=== PATIENT | male | born 1960 | race Caucasian/White ===

== ENCOUNTER 2017-08-12 02:15 | Emergency (ER) | payer BC, SELFPAY ==
--- NOTE | 2017-08-12 02:24 | ED_ITS ---
HPI - Abdominal Pain General Chief Complaint: Back Pain/Injury Stated Complaint: BACK PAIN Time Seen by Provider: 08/12/17 02:16 Source: patient and family Mode of arrival: ambulatory Limitations: no limitations History of Present Illness HPI narrative: Otherwise healthy 56-year-old male here for evaluation of bilateral mid back pain. Patient states that he has felt like it has been sore for the past couple days. Has been coughing for several weeks now. Does have sinus congestion. No trauma. No urinary symptoms. No bowel symptoms. No saddle anesthesia. Patient states that he did see a natural [facility] a provider who gave him a ?tea? to drink. He states that since then he has felt like the pain has gotten worse. Patient came in to make sure his kidney function was okay Related Data Previous Rx's Medication Instructions Recorded albuterol sulfate [Ventolin HFA] 2 puff INH Q4HP PRN #1 inh 02/25/16 codeine-guaifenesin 5 ml PO QHS #60 ml 02/25/16 benzonatate [Tessalon Perles] 100 mg PO TID PRN #20 cap 08/12/17 cyclobenzaprine 10 mg PO TID PRN #20 tab 08/12/17 Allergies Allergy/AdvReac Type Severity Reaction Status Date / Time NSAIDS (Non-Steroidal Allergy Unknown Verified 08/12/17 02:39 Anti-Inflamma [NSAIDS (NON-STEROIDAL ANTI-INFLAMMA] shellfish derived Allergy Unknown Unverified 06/13/17 12:40 [SHELLFISH DERIVED] Review of Systems Constitutional Denies chills, Denies fever(s), Denies lethargy and Denies weakness ENT Ears, Nose, Mouth, and Throat: Denies neck pain Cardiovascular Denies dyspnea Respiratory Reports cough, Denies pain on inspiration, Reports pain with cough, Denies dyspnea and Denies wheezing Gastrointestinal Gastrointestinal: Denies abdominal pain, Denies constipation, Denies diarrhea, Denies nausea and Denies vomiting Musculoskeletal Denies abnormal gait, Reports back pain, Denies neck pain and Denies tingling Integumentary/Breasts Denies rash Neurologic Denies abnormal gait, Denies focal weakness, Denies sensory deficit, Denies tingling and Denies weakness Hematologic/Lymphatic Denies easy bruising Allergic/Immunologic Denies wheezing FOR[facility]LY [facility] Social History (Reviewed 08/12/17 @ 04:35 by TERI Dale Smoking Status: Never smoker Exam Initial Vital Signs Initial Vital Signs: Vital Signs Temperature 98.0 F 08/12/17 02:35 Pulse Rate 75 08/12/17 02:35 Respiratory Rate 18 08/12/17 02:35 Blood Pressure 142/96 H 08/12/17 02:35 Pulse Oximetry 99 08/12/17 02:35 Resp Effort & Inspection: normal respiratory effort, no audible wheezes, no cough and not labored GI Inspection: normal to inspection and non-distended Palpation: soft, No firm, No guarding and No tender Back/Spine/Pelvis Back: normal to inspection, back tenderness and CVA tenderness Thoracic/Lumbar Spine: thoracic and lumbar spine normal to inspection Skin General: no rashes or lesions noted, No jaundice and No petechiae Neuro General: alert, awake and oriented x3 Course Orders Ordered: ED Orders 08/12/17 03:15 Basic Metabolic Panel Stat Vital Signs - 8 hr 08/12/17 02:35 08/12/17 04:10 Temperature 98.0 F 97.4 F L Pulse Rate 75 60 Respiratory Rate 18 16 Blood Pressure 142/96 H 138/91 H Pulse Oximetry 99 98 MDM - Abdominal Pain Lab Data Result diagrams: 08/12/17 03:15 Lab Results 08/12/17 Range/Units 03:15 Sodium 142 (137-145) mmol/L Potassium 4.1 (3.4-5.1) mmol/L Chloride 103 (98-107) mmol/L Carbon Dioxide 31 (22-32) mmol/L BUN 15 (9-20) mg/dL Creatinine 0.90 (0.66-1.25) mg/dL Estimated GFR > 60.0 (>60) mL/min BUN/Creatinine Ratio 16.7 (6-22) Glucose 100 (70-100) mg/dL Calcium 9.3 (8.4-10.2) mg/dL MDM Narrative Medical decision making narrative: Creatinine unremarkable. Urine unremarkable. Patient's symptoms consistent with musculoskeletal back pain. No red flag symptoms concerning for fracture or cauda equina. Will hold on any radiologic studies for now. We discussed the use of Tylenol. Patient states he is allergic to nonsteroidal anti-inflammatories. Will send home with test lawn secondary to his coughing which is probably adding to his back pain. Will also send home with Flexeril. Patient was instructed that the Flexeril does not work over the next couple doses that he should stop that medicine. He was given return precautions. Family was at bedside for the discussion. He expressed understanding and agreement with plan Discharge Plan Departure Patient Disposition: Home, Self-Care Clinical Impression: Thoracic back pain Discharge Date/Time: 08/12/17 04:11 Interventions: ED Discharge Assessment Last Done: 08/12/17 04:10 Instructions: Back Pain (Alternative Therapy), Activity May Be Better then Rest for Low Back Pain Recovery Activity Restrictions/Additional Instructions: Take the medications as directed. Also recommend that you take Tylenol as directed for the next couple days. Also encourage you to use heat/hi/massage as needed. Return to the emergency department for any new or worsening symptoms Prescriptions: New cyclobenzaprine 10 mg tablet 10 mg PO TID PRN (Reason: muscle spasm) Qty: 20 RF: 0 benzonatate [Tessalon Perles] 100 mg capsule 100 mg PO TID PRN (Reason: cough) Qty: 20 RF: 0 No Action codeine-guaifenesin 100 MG/10 MG liquid 5 ml PO QHS Qty: 60 RF: 0 albuterol sulfate [Ventolin HFA] 90 MCG/PUFF HFA aerosol inhaler 2 puff INH Q4HP PRNQty: 1 RF: 0
[2017-08-12 02:35] VITALS: BP 142/96; PULSE 75; RESP 18; TEMP 36.7; O2SAT 99; BMI 24.3
[2017-08-12 03:34] LABS: BUN Creatinine Ratio 16.7 (6-22); Blood Urea Nitrogen 15 mg/dL (9-20); Calcium 9.3 mg/dL (8.4-10.2); Carbon Dioxide 31 mmol/L (22-32); Chloride 103 mmol/L (98-107); Estimated Glomerular Filt Rate > 60.0 mL/min (>60); Glucose 100 mg/dL (70-100); HEMOLYSIS < 15 (0-50); Potassium 4.1 mmol/L (3.4-5.1); Sodium 142 mmol/L (137-145)
[2017-08-12 04:10] VITALS: BP 138/91; PULSE 60; RESP 16; TEMP 36.3; O2SAT 98
== END 2017-08-12 04:11 | disposition home or self-care (01) ==
PROVIDERS: Emergency Provider Emergency Medicine; Family Provider Nurse Practitioner Family; PCP Nurse Practitioner Family
DX: M54.6 Pain in thoracic spine (principal)
CPT/HCPCS: 36415; 80048; 81003; 99282

== ENCOUNTER → 2019-01-01 12:35 | Outpatient (CLI) | payer OTHER, SELFPAY ==
--- NOTE | 2019-01-01 | DI.MRI.S_ITS ---
PROCEDURE: MR LUMBAR SPINE WO CON INDICATIONS: midline back pain with sciatica TECHNIQUE: Noncontrast sagittal T1 spin echo and T2 fast echo, sagittal STIR, axial T1 and T2 fast spin echo through the lumbar spine. In cases with scoliosis, additional coronal T2 fast spin echo may be performed. COMPARISON: [facility], CR, XR LUMBAR SPINE 2 OR 3 VIEWS, 05/02/2017, 11:01. FINDINGS: Image quality: Excellent. Alignment and Curvature: 5 lumbar type vertebral bodies are present by plain film. There is normal bony alignment. Bone Marrow: Marrow is of normal overall signal. No acute vertebral body compression fractures. There is mild degenerative marrow edema adjacent to the L4-L5 facet joints bilaterally, left greater than right. Spinal Cord: Conus medullaris terminates at the lower L1 level. Visualized cord demonstrates normal signal and size. Paraspinous Soft Tissues: No paravertebral masses. L1-L2: Normal appearance. L2-L3: Mild disc desiccation. Mild diffuse disc bulge. Mild facet and ligamentum flavum hypertrophy. Mild canal stenosis. No foraminal stenosis. L3-L4: Mild disc desiccation and diffuse disc bulge. Mild facet hypertrophy. No significant canal stenosis. Mild bilateral foraminal stenosis. L4-L5: Mild disc desiccation and diffuse disc bulge. Mild facet and ligamentum hypertrophy. Mild epidural lipomatosis. Moderate canal stenosis. Moderate subarticular foraminal stenosis bilaterally. L5-S1: Mild bilateral facet hypertrophy. No significant canal stenosis. Moderate subarticular foraminal stenosis bilaterally. IMPRESSION: 1. Multilevel degenerative disc and facet disease, as well as ligamentum flavum hypertrophy and epidural lipomatosis. 2. Multilevel canal stenoses, worst at L4-L5, where there is moderate canal stenosis. 3. Multilevel foraminal stenoses, worst at L4-L5 and L5-S1 bilaterally, where there are moderate foraminal stenoses present. Dictated by: Rafiq Guzman M.D. on 01/01/2019 at 14:03 Approved by: Rafiq Guzman M.D. on 01/01/2019 at 14:06
== END ==
PROVIDERS: Family Provider Nurse Practitioner Family; PCP Nurse Practitioner Family; Visit Provider Nurse Practitioner Family
DX: M51.16 Intervertebral disc disorders with radiculopathy, lumbar region (principal); M48.061 Spinal stenosis, lumbar region without neurogenic claudication; M48.07 Spinal stenosis, lumbosacral region; E88.2 Lipomatosis, not elsewhere classified
CPT/HCPCS: 72148

== ENCOUNTER → 2023-02-08 15:21 | Outpatient (CLI) | payer OTHER, SELFPAY ==
--- NOTE | 2023-02-08 | DI.MRI.S_ITS ---
PROCEDURE: MR LUMBAR SPINE WO CON INDICATIONS: LUMBAR PAIN TECHNIQUE: Noncontrast sagittal T1 spin echo and T2 fast echo, sagittal STIR, and T2 fast spin echo through the lumbar spine. In cases with scoliosis, additional coronal T2 fast spin echo may be performed. COMPARISON: [facility], MR, MR LUMBAR SPINE WO CON, 01/01/2019, 12:47. FINDINGS: Image quality: Excellent. Alignment and Curvature: There is normal bony alignment. Bone Marrow: Marrow is of normal overall signal. No acute vertebral body compression fractures. Spinal Cord: Conus medullaris terminates at the L1 level. Visualized cord demonstrates normal signal and size. Paraspinous Soft Tissues: No paravertebral masses. T12-L1: No significant disc bulge. The foramina and central canal are patent. L1-L2: No significant disc bulge. The foramina and central canal are patent. L2-L3: Mild disc desiccation. No significant disc bulge. The foramina and central canal are patent. L3-L4: Mild disc desiccation. No significant disc bulge. The foramina and central canal are patent. L4-L5: Mild disc desiccation. Mild facet and ligamentum flavum hypertrophy. Moderate subarticular foraminal stenosis bilaterally. Moderate central canal stenosis. L5-S1: Diffuse disc bulge. Mild bilateral facet hypertrophy. Epidural lipomatosis. Moderate bilateral subarticular foraminal stenosis. The central canal is patent. IMPRESSION: 1. Multilevel lumbar spondylosis causing foraminal and central canal stenosis as detailed above. Moderate central canal stenosis at L4-5. 2. No focal protrusion or extrusion. 3. The visualized cord has normal signal. 4. No significant interval change compared to 01/01/2019. Dictated by: Gt Crowe M.D. on 02/09/2023 at 8:03 Approved by: Gt Crowe M.D. on 02/09/2023 at 8:10
== END ==
PROVIDERS: Family Provider Nurse Practitioner Family; PCP Nurse Practitioner Family; Referring Provider Family Medicine; Visit Provider Family Medicine
DX: M47.816 Spondylosis without myelopathy or radiculopathy, lumbar region (principal); M47.817 Spondylosis without myelopathy or radiculopathy, lumbosacral region; M48.061 Spinal stenosis, lumbar region without neurogenic claudication; M48.07 Spinal stenosis, lumbosacral region; M54.50 Low back pain, unspecified
CPT/HCPCS: 72148